=== PATIENT | male | born 1980 | race Caucasian/White ===

== ENCOUNTER 2023-11-04 07:41 | Emergency (ER) | payer BC ==
[2023-11-04] MEDS ORDERED: Sodium Chloride 0.9% 10 ML Syringe FLUSH PRN (08:21)
[2023-11-04] MEDS ORDERED: Naloxone 0.4 MG/ML SDV IVPUSH PRN (08:23)
[2023-11-04] MEDS: HYDROmorphone 1 MG/ML Syringe IVPUSH ONE (08:35)
[2023-11-04 08:49] LABS: BASOPHILS ABSOLUTE AUTO 0.1 K/mm3 (0.0-0.2); BASOPHILS PERCENT AUTO 0.3 % (0.0-1.0); EOSINOPHILS ABSOLUTE AUTO 0.1 K/mm3 (0.0-0.4); EOSINOPHILS PERCENT AUTO 0.9 % (0.0-6.0); HEMATOCRIT 44.5 % (42.0-52.0); HEMOGLOBIN 15.2 gm/dl (14.0-18.0); IMMATURE GRAN ABSOLUTE AUTO 0.04 K/mm3 (0.00-0.05); IMMATURE GRAN PERCENT AUTO 0.3 % (0.0-0.4); LYMPHOCYTES PERCENT AUTO 6.8 % (24.0-44.0); MEAN CORPUSCULAR HEMOGLOBIN 29.8 pg (28.0-32.0); MEAN CORPUSCULAR HGB CONC 34.2 g/dl (32.0-36.0); MEAN CORPUSCULAR VOLUME 87.3 fl (83.0-99.0); MEAN PLATELET VOLUME 8.2 fl (9.4-12.4); MONOCYTES PERCENT AUTO 6.8 % (0.0-8.0); NEUTROPHILS ABSOLUTE AUTO 12.8 K/mm3 (1.8-7.7); NEUTROPHILS PERCENT AUTO 84.9 % (41.0-71.0); PLATELET COUNT,PLT 307 K/mm3 (150-400); WHITE BLOOD CELL COUNT,WBC 15.04 K/mm3 (3.9-11.3)
[2023-11-04 08:53] LABS: INR 1.05; PROTHROMBIN TIME 11.1 SECONDS (9.7-12.0)
[2023-11-04 08:54] LABS: PTT,PARTIAL THROMBOPLSTIN TIME 28.2 SECONDS (21.7-31.4)
[2023-11-04 09:05] LABS: A/G RATIO 0.8 (1-2); ALBUMIN 3.7 g/dl (3.4-5.0); ANION GAP 10.7 (5-15); BILIRUBIN TOTAL 1.1 mg/dL (0.2-1.0); BUN/CREATININE RATIO 17.8 (14-18); CALCIUM 9.2 mg/dL (8.5-10.1); CREATININE 0.9 mg/dL (0.7-1.3); EST CRCL DRUG DOSING (CG) 110.39 mL/min; PROTEIN TOTAL,TP 8.1 g/dl (6.4-8.2)
[2023-11-04 09:07] LABS: POTASSIUM,K 3.7 mEq/L (3.5-5.1)
[2023-11-04] MEDS: Sodium Chloride 0.9% 100 ML IV SCH (09:23)
[2023-11-04] MEDS: Iopamidol 755 Mg/ML 100 ML Bottle IVPUSH ONE (09:23)
[2023-11-04] MEDS: Sodium Chloride 0.9% 10 ML Syringe FLUSH PRN (09:24)
[2023-11-04 10:16] LABS: APPEARANCE,URINE CLEAR (Clear); BILIRUBIN,URINE NEGATIVE (Negative); COLOR,URINE YELLOW (Yellow); GLUCOSE,URINE NEGATIVE (Negative); KETONES,URINE NEGATIVE (Negative); LEUKOCYTE ESTERASE,URINE NEGATIVE (Negative); NITRITE,URINE NEGATIVE (Negative); OCCULT BLOOD,URINE NEGATIVE (Negative); PROTEIN,URINE NEGATIVE (Negative); UROBILINOGEN,URINE 0.2 (0.2-1.0)
[2023-11-04] MEDS: Acetaminophen/HYDROcodone 325-10 MG Tab PO ONE (11:37)
[2023-11-04] MEDS: Ketorolac 30 MG/ML SDV IVPUSH ONE (11:38)
== END 2023-11-04 15:12 | disposition home or self-care (01) ==
LOC: JD.ED 07:41
DX: M54.6 Pain in thoracic spine (principal); Z79.899 Other long term (current) drug therapy
CPT/HCPCS: 36415; 71275; 71275-26; 72146; 72146-26; 80053; 81003; 83690; 83880; 84484; 85025; 85610; 85730; 93005; 96374; 96375; 99284-25; A9270-GY; J1170; J1885; J3490; Q9967

== ENCOUNTER 2023-12-21 19:56 | Emergency (ER) | payer BC ==
[2023-12-21] MEDS ORDERED: Sodium Chloride 0.9% 10 ML Syringe FLUSH PRN (20:24)
[2023-12-21 20:40] LABS: HEMATOCRIT 29.1 % (42.0-52.0); HEMOGLOBIN 9.1 gm/dl (14.0-18.0); MEAN CORPUSCULAR HEMOGLOBIN 26.5 pg (28.0-32.0); MEAN CORPUSCULAR HGB CONC 31.3 g/dl (32.0-36.0); MEAN CORPUSCULAR VOLUME 84.8 fl (83.0-99.0); PLATELET COUNT,PLT 705 K/mm3 (150-400); RED BLOOD CELL COUNT 3.43 M/mm3 (4.52-5.90); WHITE BLOOD CELL COUNT,WBC 10.38 K/mm3 (3.9-11.3)
[2023-12-21] MEDS: Sodium Chloride 0.9% 1,000 ML IV ONE (20:41)
[2023-12-21] MEDS: cefTRIAXone 2 GM in Sodium Chloride 0.9% 100 ML IV ONE (20:49)
[2023-12-21 21:01] LABS: INR 1.21; PROTHROMBIN TIME 12.7 SECONDS (9.7-12.0)
[2023-12-21 21:13] LABS: LACTIC ACID 1.4 mmol/L (0.4-2.0)
[2023-12-21 21:19] LABS: A/G RATIO 0.4 (1-2); ALBUMIN 2.3 g/dl (3.4-5.0); BILIRUBIN TOTAL 0.6 mg/dL (0.2-1.0); C-REACTIVE PROTEIN 13.05 mg/dL (<0.30); EST CRCL DRUG DOSING (CG) 96.32 mL/min; PROTEIN TOTAL,TP 8.4 g/dl (6.4-8.2)
[2023-12-21 21:22] LABS: BAND PERCENT MAN 0 % (0-10); BASOPHILS PERCENT MAN 0 (0.2-1.2); EOSINOPHILS PERCENT MAN 5 % (0.8-7.0); LYMPHOCYTES % ATYPICAL MANUAL 0 %; LYMPHOCYTES PERCENT MAN 15 % (20-40); MONOCYTES PERCENT MAN 6 % (2-10)
[2023-12-21 21:25] LABS: HYPOCHROMASIA FEW; MICROCYTOSIS 1+ SLIGHT; PLATELET COUNT ESTIMATE INCREASED
[2023-12-21] MEDS: VANCOmycin 2 GM/400 ML 2 GM in Premix Bag 1 BAG IV ONE (21:40)
[2023-12-21] MEDS: HYDROmorphone 0.5 MG/0.5 ML Syringe IVPUSH ONE ×2 (21:53→23:55)
== END 2023-12-22 00:22 ==
LOC: JD.ED 19:56
DX: M46.24 Osteomyelitis of vertebra, thoracic region (principal); D64.89 Other specified anemias; Z79.2 Long term (current) use of antibiotics; Z79.1 Long term (current) use of non-steroidal anti-inflammatories (NSAID)
CPT/HCPCS: 36415; 80053; 83605; 85007; 85027; 85610; 85652; 86140; 87040; 93005; 96365; 96366; 96367; 96375; 96376; 99285; J0696; J1171; J3372; J3490; J7030; 93010

== ENCOUNTER 2024-01-21 16:18 | Emergency (ER) | payer BC ==
[2024-01-21 18:24] LABS: BASOPHILS ABSOLUTE AUTO 0.1 K/mm3 (0.0-0.2); BASOPHILS PERCENT AUTO 0.8 % (0.0-1.0); EOSINOPHILS ABSOLUTE AUTO 0.4 K/mm3 (0.0-0.4); EOSINOPHILS PERCENT AUTO 3.9 % (0.0-6.0); HEMATOCRIT 36.1 % (42.0-52.0); HEMOGLOBIN 11.2 gm/dl (14.0-18.0); IMMATURE GRAN ABSOLUTE AUTO 0.04 K/mm3 (0.00-0.05); IMMATURE GRAN PERCENT AUTO 0.4 % (0.0-0.4); LYMPHOCYTES ABSOLUTE AUTO 2.6 K/mm3 (1.0-4.8); LYMPHOCYTES PERCENT AUTO 28.9 % (24.0-44.0); MEAN CORPUSCULAR HEMOGLOBIN 26.4 pg (28.0-32.0); MEAN CORPUSCULAR VOLUME 84.9 fl (83.0-99.0); MEAN PLATELET VOLUME 8.1 fl (9.4-12.4); MONOCYTES ABSOLUTE AUTO 0.7 K/mm3 (0.0-0.8); MONOCYTES PERCENT AUTO 7.8 % (0.0-8.0); NEUTROPHILS ABSOLUTE AUTO 5.2 K/mm3 (1.8-7.7); NEUTROPHILS PERCENT AUTO 58.2 % (41.0-71.0); PLATELET COUNT,PLT 355 K/mm3 (150-400); RED BLOOD CELL COUNT 4.25 M/mm3 (4.52-5.90); WHITE BLOOD CELL COUNT,WBC 8.97 K/mm3 (3.9-11.3)
[2024-01-21 18:51] LABS: A/G RATIO 0.5 (1-2); ALBUMIN 3.1 g/dl (3.4-5.0); ANION GAP 12.7 (5-15); BILIRUBIN TOTAL 0.4 mg/dL (0.2-1.0); BUN/CREATININE RATIO 21.1 (14-18); CALCIUM 9.1 mg/dL (8.5-10.1); CREATININE 0.9 mg/dL (0.7-1.3); EST CRCL DRUG DOSING (CG) 107.02 mL/min; POTASSIUM,K 3.7 mEq/L (3.5-5.1); PROTEIN TOTAL,TP 8.8 g/dl (6.4-8.2)
== END 2024-01-21 19:15 | disposition home or self-care (01) ==
LOC: JD.ED 16:18
DX: M54.9 Dorsalgia, unspecified (principal); Z79.899 Other long term (current) drug therapy
CPT/HCPCS: 36415; 80053; 85025; 87040; 99283